=== PATIENT | male | born 1965 | race Caucasian/White ===

== ENCOUNTER 2019-09-10 06:23 | Emergency (ER) | payer SELFPAY ==
[~2019-09-10] VITALS: Ht 188 cm; Wt 92.7 kg
[2019-09-10 06:26] VITALS: Ht 188 cm; Wt 92.7 kg
[2019-09-10] MEDS ORDERED: OMEPRAZOLE20 M1 PO (06:27)
[2019-09-10] MEDS ORDERED: AUGMENTIN 875-11 TAB PO (07:08)
[2019-09-10] MEDS ORDERED: HYDROCODON-ACE1 EAC7 PO (07:08)
[2019-09-10 07:57] VITALS: BP 145/102
== END 2019-09-10 08:00 | disposition home or self-care (01) ==
LOC: EDBD 06:23 → D.ER 06:23
DX: S61.512A Laceration without foreign body of left wrist, initial encounter (principal); S60.212A Contusion of left wrist, initial encounter; K21.9 Gastro-esophageal reflux disease without esophagitis; W22.8XXA Striking against or struck by other objects, initial encounter; Y93.9 Activity, unspecified; Y92.9 Unspecified place or not applicable